=== PATIENT | female | born 1995 | race Caucasian/White ===

== ENCOUNTER 2021-11-23 19:25 | Emergency (ER) | payer SELFPAY ==
[~2021-11-23] VITALS: Ht 160 cm; Wt 56.8 kg
[2021-11-23 19:28] VITALS: TEMP 98.3
[2021-11-23 20:21] LABS: BASO # 0.1 K/mm3 (0.0-0.2); EOS # 0.1 K/mm3 (0.0-0.7); EOS % 0.5 % (0.0-4.0); GRAN # 5.9 K/mm3 (1.4-6.5); GRAN % 60.7 % (42.2-75.2); HEMATOCRIT 38.1 % (37.0-47.0); HEMOGLOBIN 13.2 g/dl (12.5-16.0); LYMPH # 2.7 K/mm3 (1.2-3.4); LYMPH % 27.8 % (20.0-51.0); MEAN CELL VOLUME 94 fl (80.0-100.0); MEAN CORPUSCULAR HEMOGLOBIN 33 pg (27-31); MEAN CORPUSCULAR HGB CONC 35 g/dl (33.0-37.0); MEAN PLATELET VOLUME 8.8 fl (7.4-10.4); MONO # 0.9 K/mm3 (0.1-0.6); MONO % 9.6 % (1.7-9.3); PLATELET COUNT 500 K/mm3 (130-400); RED BLOOD COUNT 4.06 M/mm3 (4.10-5.30)
[2021-11-23 20:47] LABS: ALBUMIN 4.1 gm/dL (3.5-5.0); BILIRUBIN,TOTAL 0.3 mg/dL (0.2-1.2); CALCIUM 9.5 mg/dL (8.4-10.2); CREATININE, serum 0.97 mg/dL (0.57-1.11); POTASSIUM 3.9 mmol/L (3.5-4.5); TOTAL PROTEIN 7.4 gm/dL (6.2-8.1)
[2021-11-23] MEDS ORDERED: PERCOCET 325 MG1 TA2 PO (22:49)
[2021-11-23 22:51] VITALS: BP 121/73; PULSE 104
== END 2021-11-23 23:03 | disposition home or self-care (01) ==
LOC: COL.ER 19:25
PROVIDERS: Personal Emergency Response Attendant
DX: M79.604 Pain in right leg (principal); M79.605 Pain in left leg
CPT/HCPCS: J1170; J1200; J1790; J3010; J7030

== ENCOUNTER 2022-02-11 21:11 | Emergency (ER) | payer OTHER ==
[~2022-02-11] VITALS: Ht 160 cm; Wt 63.6 kg
[~2022-02-11 21:11] MED LIST: PERCOCET 325 MG1 TA2 PO
[2022-02-11 21:27] VITALS: TEMP 98.2
[2022-02-11] MEDS ORDERED: ROXICODONE 55 MG/TAB PO (23:44)
[2022-02-12] VITALS: BP 126/100; PULSE 91
== END 2022-02-12 00:05 | disposition home or self-care (01) ==
LOC: COL.ER 21:11
DX: G90.523 Complex regional pain syndrome I of lower limb, bilateral (principal)